=== PATIENT | male | born 1975 | race Caucasian/White ===

== ENCOUNTER 2019-08-30 01:01 | Day surgery (SDC) | payer BC, SELFPAY ==
[2019-08-16 12:57] VITALS: BMI 29.6
--- NOTE | 2019-08-27 13:03 | PM.SD ---
Same Day Admit/Disch: HPI History of Present Illness Chief complaint: Left Inguinal Hernia Narrative: Maikol Randle is a 44 year old male Who noticed a bulge in the left groin about 6 months ago. The bulge became bigger and much more noticeable after he moved a deer that was about 130 lb. The patient was seen in the office and found to have a reducible left inguinal hernia. It has gotten larger and is occasionally uncomfortable. He is taken to surgery now for repair under anesthesia. 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 Gender identity (if verbalized by the patient): Male Same Day Admit/Disch: Med Pre-admit Medications Home Medications Medication Instructions Recorded Confirmed Type fexofenadine [Lori Allergy] 180 mg PO DAILY PRN 08/16/19 08/16/19 History fluticasone propionate [Flonase 1 spray INTRANASAL DAILY PRN 08/16/19 08/16/19 History Allergy Relief] naproxen sodium [Aleve] 220 mg PO BID PRN 08/16/19 08/16/19 History hydrocodone-acetaminophen 1 - 2 tablet PO Q6H PRN #10 tablet 08/30/19 Rx ketorolac 10 mg PO Q6H 4 Days #16 tablet 08/30/19 Rx Exam Const: General: comfortable, no acute distress, alert and awake HENMT: Head: normocephalic and atraumatic Mouth: Yes Normal oral and palatal mucosa present Eyes: Conjunctivae: conjunctivae normal Pupils: Equal, round and reactive pupils present EOM: EOMs intact bilaterally Neck: Neck: normal visual inspection, no lymphadenopathy and nontender Resp: Effort & Inspection: normal respiratory effort Auscultation: clear to auscultation bilaterally Cardio: Rate: regular rate Rhythm: regular rhythm Heart sounds: no gallops, no murmurs and no rubs GI: Inspection: non-distended GI Palp: Yes Soft to palpation, No Tenderness to palpation present (GI), No Hepatomegaly present and No Splenomegaly present : Male General Exam: Yes hernia ( Left inguinal hernia, reducible, bulges with cough) Penis: Yes normal penis Scrotum: scrotum normal Testes: Testes normal Skin: Lesions: no lesions Rashes: no rashes Neuro: General: no focal motor deficits and CN's II-XI intact bilaterally Cranial nerves: Yes Equal, round and reactive pupils present, Yes Bilaterally intact EOM present, Yes facial symmetry and Yes Midline tongue present Speech: normal speech Motor exam (neuro): 5/5 motor strength present throughout and Motor abnormalities not present Extrem: General: no clubbing, cyanosis or edema and edema Psych: Affect: normal affect Thought process: Normal thought process present Insight: Good insight present (Psych) DS: Summary Time Spent with Patient Time attestation: Total time spent providing and/or coordinating discharge services: DS: Diagnosis Discharge Diagnosis (1) Left inguinal hernia: Onset Date: ~03/2019 Code(s): K40.90 - Unilateral inguinal hernia, without obstruction or gangrene, not specified as recurrent Status: Chronic Assessment and Plan: after discussion, I have recommended we go ahead with left inguinal hernia repair. The procedure the risks the benefits have been discussed with the patient. The usual recovery and time off work have been discussed. The use of mesh has been discussed. All questions were answered. The patient understands and agrees to go ahead. Discharge Plan Discharge Patient Disposition: Home, Self-Care Discharge Instructi
--- NOTE | 2019-08-30 10:16 | WPDHPUPDATE1 ---
History and Physical Update Update Date/Time: 08/30/19 10:16 History and Physical has been reviewed, including an updated exam of the patient. There are NO changes in the patient's condition. Risks, benefits, and alternatives have been discussed and questions answered. Patient agrees to proceed with procedure.
[2019-08-30 10:40] VITALS: BP 138/81; PULSE 85; RESP 18; TEMP 36.6; O2SAT 99
[2019-08-30] MEDS: LACTATED RINGERS 1,000 ML 30 ML IV CONT ×2 (10:40→13:06)
--- NOTE | 2019-08-30 11:27 | WPDANESEPPF ---
Anes - Initial Pre Proc Eval Procedure: Operation Date: 08/30/19 12:00 Proposed Procedures p Left Inguinal Hernia Repair - Michael Nielson MD Date/Time: 08/30/19 11:27 Surgeon: Michael Nielson MD Pre Op Diagnosis: Left Inguinal Hernia Patient Data Age: 44 Gender: M Height: 5 ft 8 in Weight: 57.5 kg Last Vital Signs Temp 36.6 C 08/30/19 10:40 Pulse 85 08/30/19 10:40 Resp 18 08/30/19 10:40 BP 138/81 08/30/19 10:40 Pulse Ox 99 08/30/19 10:40 Allergies Allergy/AdvReac Type Severity Reaction Status Date / Time No Known Allergies Allergy Verified 08/30/19 10:45 Home Medications Medication Instructions Recorded Confirmed Type fexofenadine [Lori Allergy] 180 mg PO DAILY PRN 08/16/19 08/16/19 History fluticasone propionate [Flonase 1 spray INTRANASAL DAILY PRN 08/16/19 08/16/19 History Allergy Relief] naproxen sodium [Aleve] 220 mg PO BID PRN 08/16/19 08/16/19 History Patient hx anesthesia problems: none Family hx anesthesia problems: none PMFSH Past Medical History Medical History (Updated 08/30/19 @ 11:28 by Heath Murguia MD) Overweight Surgical History Surgical History History of wisdom tooth extraction Family History Family History Mother Diabetes mellitus Unknown Cancer Hypertension Social History Social History Smoking status: Never smoker Alcohol intake: current Substance use: never 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 Questions were solicited and answers provided to the satisfaction of the patient/family/POA.
--- NOTE | 2019-08-30 11:28 | PM.PROC ---
Procedure Note - Detailed Date of procedure: 08/30/19 Pre-op diagnosis: Left Inguinal Hernia [ ] inguinal hernia Post-op diagnosis: other (Indirect hernia) Procedure performed: Repair of [ ] inguinal hernia with [6] cm Parietex hernia mesh system Description of procedure: The patient was taken to surgery and IV sedation was administered. The [ ] groin and genitalia were prepped and draped. Proposed incision was marked on the skin. Local was infiltrated into the skin and the deeper subcutaneous tissues. Incision was made and deepened through the subcutaneous. Crossing veins were cauterized and divided. Dissection was carried through Priti's fascia down to the external oblique aponeurosis. The aponeurosis was exposed as was the external ring. Additional local anesthesia was infiltrated deep to the aponeurosis in the area of the spermatic cord and inguinal canal contents. The aponeurosis was opened laterally and extended medially through the external ring. The leaves of the aponeurosis were dissected free from the spermatic cord. The ileoinguinal nerve was carefully preserved throughout the dissection and was left attached to the spermatic cord. The cord was then mobilized medially on a Mary drain. The cord was dissected back to the internal ring. Dissection was then carried out in the anteromedial spermatic cord. The hernia sac was found and dissected free. The sac was opened so that I could place a finger within the hernia sac and facilitate this dissection. This opening was then closed with a running 3 0 Vicryl suture. The sac was then dissected back to a high dissection. It was dunked into the retroperitoneum. A [6 ] centimeter Parietex [place] was chosen. It was folded to form a plug. It was placed in the defect. The edges were sutured to the transversalis fascia with interrupted 3 0 Vicryl suture. The hernia defect was then partially closed with some additional 3 0 Vicryl suture. Patch was then cut to the appropriate size and placed over the inguinal canal floor. The lateral leaves were passed beyond the cord. The cord and ileoinguinal nerve were then laid over the patch. The external oblique aponeurosis was closed with interrupted 3 0 Vicryl suture. Priti's fascia was closed with interrupted 3 0 Vicryl suture. The subcutaneous was closed with interrupted 4 0 Vicryl suture. Four 0 Vicryl subcuticular skin sutures were placed. The skin was closed finally with a running 4 0 Monocryl skin suture. The wound was dressed with Exofin surgical adhesive. The patient was awakened and taken to recovery in good condition. Sponge and needle counts were correct x2. Anesthesia: MAC and local (0.5% Marcaine with Exparel) Surgeon: Michael Nielson MD Estimated blood loss (mL): 5 Drains: No Packing: No Pathology: none sent Complications: None Condition: stable Disposition: PACU Findings: Indirect inguinal hernia. No sliding hernia was noted.
[2019-08-30] MEDS: ceFAZolin 2 GM/D5W 50 ML 2 GM/50 ML BAG IVPB (11:41)
[2019-08-30] MEDS: CELLULOSE OXIDIZED 2 x 14 INCH 1 PKT XX (12:35)
[2019-08-30 13:05] VITALS: BP 123/81; PULSE 74; RESP 16; O2SAT 98
--- NOTE | 2019-08-30 13:20 | PM.PROC ---
Procedure Note - Detailed Date of procedure: 08/30/19 Pre-op diagnosis: Left Inguinal Hernia Left inguinal hernia Post-op diagnosis: other (Direct inguinal hernia) Procedure performed: Left inguinal hernia repair with 8 centimeter Parietex hernia mesh system Description of procedure: The patient was taken to surgery and IV sedation was administered. The left groin and genitalia were prepped and draped. The proposed incision was marked on the skin and then local anesthesia was infiltrated into the skin and the deeper subcutaneous tissues. Incision was made and dissection was carried down through Priti's fascia to the external oblique aponeurosis. Crossing veins were cauterized and divided. The external oblique aponeurosis was then exposed as was the external ring. Additional local anesthetic was infiltrated deep to the aponeurosis in the area of the spermatic cord and inguinal canal contents. We then opened the external oblique aponeurosis laterally and extended this incision medially through the external ring. The leaves of the aponeurosis were freed from the underlying inguinal canal contents. Care was taken not to injure the ileoinguinal nerve which was dissected out and left attached to the spermatic cord. The spermatic cord was then mobilized medially on a Downey drain. It was mobilized back to the internal ring. The direct hernia was dissected free from the spermatic cord. It was dissected back to its neck. The sac was then incised circumferentially just off the neck. It was divided through the transversalis fascia circumferentially. The hernia sac was then dunked into the retroperitoneum. An 8 centimeter Parietex [place] was chosen. It was folded to form a plug. The plug was placed in the defect. The edges were sutured to the transversalis fascia with interrupted 3 0 Vicryl suture. The hernia defect was also partially closed with interrupted 3 0 Vicryl suture. The patch was then cut to the appropriate size. It was placed over the inguinal canal floor with the lateral leaves passing beyond the cord. The cord and ileoinguinal nerve were then laid over the patch. The external oblique aponeurosis was closed with interrupted 3 0 Vicryl suture. Priti's fascia was closed with interrupted 3 0 Vicryl suture. Four 0 Vicryl subcutaneous and subcuticular skin stitches were placed. The skin was finally closed with a running 4 0 Monocryl skin suture. The wound was dressed with Exofin surgical adhesive. Patient was awakened and taken to recovery in good condition. Sponge and needle counts were correct x2. Implants: 8 cm Parietex hernia mesh system Anesthesia: MAC and local (0.5% Marcaine mixed with Exparel) Surgeon: Michael Nielson MD Shoe Caser: Fernanda DAHL Estimated blood loss (mL): 15 Drains: No Packing: No Pathology: none sent Complications: None Condition: stable Disposition: same day Findings: Large direct inguinal hernia
[2019-08-30 13:35] VITALS: BP 153/99; PULSE 90
[2019-08-30 14:05] VITALS: BP 137/86; PULSE 72
== END 2019-08-30 14:35 | disposition home or self-care (01) ==
PROVIDERS: PCP Physician Assistant Medical; Visit Provider Surgery
PROC: (CPT 49505; principal; 2019-08-30 12:00)
DX: K40.90 Unilateral inguinal hernia, without obstruction or gangrene, not specified as recurrent (principal)
CPT/HCPCS: 49505; A9270; C1781; C9290; J0690; J2250; J2704; J3010; J7120

== ENCOUNTER → 2021-03-31 08:50 | Outpatient (CLI) | payer BC, SELFPAY ==
--- NOTE | ~2021-03-31 | MR_ITS ---
EXAMINATION: MR cervical spine wo con EXAM DATE: 03/31/2021 10:05 INDICATION: Cervicalgia with radiculopathy . Neck pain, right shoulder arm pain. TECHNIQUE: Multi-sequential, multiplanar MR images of the cervical spine were obtained without contra st. Axial T2, axial T2 MERGE sequence. Sagittal T1, T2, T2 fat saturation images also obtained. Th ere is no prior study for comparison. FINDINGS: There is mild to moderate disc disease C5-6 and 6-7, mild at C3-4 and C4-5. There are no s uspicious marrow signal abnormalities. The spinal cord signal intensity and intrinsic morphology is n ormal. There are no suspicious marrow signal abnormalities. The vertebral bodies are aligned in the A P dimension. Paraspinal soft tissue is unremarkable. Level by level evaluation: C2-C3: Disc does not extend beyond the endplate margin. Uncovertebral joint arthropathy: None. Facet joint arthropathy: None. Neural foraminal stenosis: No stenosis. Central canal stenosis: No stenosis. C3-C4: Disc does not extend beyond the endplate margin. Uncovertebral joint arthropathy: Mild bilateral. Facet joint arthropathy: Mild bilateral. Neural foraminal stenosis: No stenosis. Central canal stenosis: No stenosis. C4-C5: There is a minimal diffuse disc bulge. Uncovertebral joint arthropathy: Mild bilateral. Facet joint arthropathy: Mild bilateral. Neural foraminal stenosis: No stenosis. Central canal stenosis: No stenosis. C5-C6: There is a minimal diffuse disc bulge. Uncovertebral joint arthropathy: Mild to moderate bilateral. Facet joint arthropathy: Mild bilateral. Neural foraminal stenosis: Mild right. Central canal stenosis: No stenosis. C6-C7: There is a minimal diffuse disc bulge. Uncovertebral joint arthropathy: Moderate right, mild to moderate left. Facet joint arthropathy: Mild bilateral. Neural foraminal stenosis: Moderate right, mild left. Central canal stenosis: No stenosis. C7-T1: Disc does not extend beyond the endplate margin. Uncovertebral joint arthropathy: Mild left. Facet joint arthropathy: Mild bilateral. Neural foraminal stenosis: No stenosis. Central canal stenosis: No stenosis. IMPRESSION: 1. C6-7 moderate right neural foraminal stenosis, most narrowed neural foramina on exam. Reviewed, dictated and finalized at location B. IMPRESSION: 1. C6-7 moderate right neural foraminal stenosis, most narrowed neural foramin a on exam.
== END ==
PROVIDERS: PCP Physician Assistant Medical; Visit Provider Physician Assistant Medical
DX: M54.12 Radiculopathy, cervical region (principal); M48.02 Spinal stenosis, cervical region
CPT/HCPCS: 72141

== ENCOUNTER 2023-12-03 11:17 | Emergency (ER) | payer BC, SELFPAY ==
--- NOTE | 2023-12-03 11:19 | ED.BACK ---
HPI - Back Pain/Injury General Chief Complaint: Back Pain/Injury Stated Complaint: Lower Back Pain Time Seen by Provider: 12/03/23 11:29 Source: patient, RN notes reviewed and old records reviewed Mode of arrival: ambulatory Limitations: no limitations History of Present Illness HPI Narrative: 48-year-old male presents to the [facility] with complaints of low back pain that started last night. States that he was doing yd work yesterday. States the pain got more stiff and muscle spasming this morning. Denies any midline tenderness. Denies trauma. No loss retention bladder. Numbness or tingling in extremities. Walks with a normal gait Related Data Home Medications Medication Instructions Recorded Confirmed fexofenadine 60 mg tablet 60 mg PO Q12H 12/03/23 12/03/23 Allergies Allergy/AdvReac Type Severity Reaction Status Date / Time No Known Allergies Allergy Verified 12/03/23 11:21 Review of Systems Review of Systems: All systems reviewed & are unremarkable except as noted in HPI and below Constitutional: Constitutional: Reports no additional constitutional complaints Eyes: Eyes: Reports no additional eye complaints ENT: Reports system reviewed and no additional complaints, except as documented Cardiovascular: Cardiovascular: Reports no additional cardiovascular complaints, Denies chest pain and Denies dyspnea Respiratory: Respiratory: Reports no additional respiratory complaints, Denies chest congestion, Denies cough and Denies dyspnea Gastrointestinal: Gastrointestinal: Reports no additional gastrointestinal complaints, Denies abdominal pain, Denies nausea and Denies vomiting Musculoskeletal: Musculoskeletal: Reports as per HPI and Reports back pain Integumentary/Breasts: Skin/Breast: Reports system reviewed and no additional complaints, except as docu Neurologic: Reports system reviewed and no additional complaints, except as documented Psychiatric: Psychiatric: Reports no additional psychiatric complaints Allergic/Immunologic: Allergic/Immunologic: Reports no additional allergic/immunologic complaints [facility] Past Medical History Medical History Overweight Surgical History Surgical History History of wisdom tooth extraction Left inguinal hernia (~03/2019) Family History Family History Mother Diabetes mellitus Unknown Cancer Hypertension Social History Social History Smoking status: Never smoker Alcohol intake: current Substance use: never Living arrangements: with family Occupation/Education: occupation 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 There is no relevant family history pertinent to the patient complaint. Exam Const: General: cooperative, healthy appearing, comfortable, no acute distress, well developed, alert and well nourished Nutritional Appearance: well nourished Orientation/consciousness: patient oriented x3 Limitations: no limitations HENMT: Head: normal to inspection Ears: hearing grossly normal bilaterally and external ears normal Face/Nose/Sinus: Normal external nose present, Normal nares present, Normal nasal mucous membranes and turbinates present, normal facial exam and face symmetric Face and sinus: normal facial exam and face symmetric Eyes: General: appearance normal, both eyes and all related structures Alignment and Position: alignment normal Periorbital: periorbital findings normal Pupils: Equal, round and reactive pupils present EOM: EOMs intact bilaterally Neck: Neck: normal visual inspection, full ROM, no lymphadenopathy
[2023-12-03 11:29] VITALS: BP 148/99; PULSE 90; RESP 16; TEMP 36.4; O2SAT 100
== END 2023-12-03 11:40 | disposition home or self-care (01) ==
PROVIDERS: Emergency Provider Nurse Practitioner
DX: M54.50 Low back pain, unspecified (principal)
CPT/HCPCS: 99213; G0463

== ENCOUNTER 2025-03-27 00:48 | Day surgery (SDC) | payer BC, SELFPAY ==
[2025-03-15 09:03] VITALS: BMI 29.1
[2025-03-27 06:12] VITALS: BP 136/83; PULSE 80; RESP 16; TEMP 36.1; O2SAT 99
[2025-03-27] MEDS: LACTATED RINGERS 1,000 ML 150 ML IV CONT (06:22)
--- NOTE | 2025-03-27 07:04 | WPDANESEPPF ---
Anes - Initial Pre Proc Eval Procedure: Operation Date: 03/27/25 07:30 Proposed Procedures p Screening Colonoscopy - Vahid Sylvester DO Date/Time: 03/27/25 07:04 Surgeon: Vahid Sylvester DO Pre Op Diagnosis: Screening for malignant neoplasm of colon Patient Data Age: 49 Gender: M Height: 1.73 m Weight: 85.5 kg Last Vital Signs Temp 36.1 C L 03/27/25 06:12 Pulse 80 03/27/25 06:12 Resp 16 03/27/25 06:12 BP 136/83 03/27/25 06:12 Pulse Ox 99 03/27/25 06:12 O2 Del Method Room Air 03/27/25 06:12 Allergies Allergy/AdvReac Type Severity Reaction Status Date / Time No Known Allergies Allergy Verified 03/27/25 06:11 Home Medications ?Medication ?Instructions ?Recorded ?Confirmed ?Type fexofenadine 60 mg tablet (Lori 60 mg PO .PRN 02/03/24 03/27/25 History Allergy) multivit,calc,mins-folic 240 1 tablet PO DAILY 02/03/24 03/27/25 History mcg-vit K1 30 mcg-lycopene 300 mcg tablet (One-A-Day Men's Complete) rosuvastatin 5 mg tablet 5 mg PO DAILY #90 tabs 11/20/24 03/27/25 Rx semaglutide (weight loss) 2.4 2.4 mg (0.75 mL) subcut WEEKLY #3 01/17/25 03/27/25 Rx mg/0.75 mL subcutaneous pen mL injector (Wegovy) lisinopril 10 mg tablet 10 mg PO DAILY #90 tabs 02/19/25 03/27/25 Rx Patient hx anesthesia problems: none Family hx anesthesia problems: none Results Review: All pre-operative results and documents have been reviewed as part of the pre-operative evaluation. [facility] Past Medical History Medical History (Updated 03/27/25 @ 07:05 by Neftali Mena DO) Hyperlipidemia Essential hypertension Migraines Allergies Overweight Surgical History Surgical History Left inguinal hernia (~03/2019) History of wisdom tooth extraction Family History Family History Mother Diabetes mellitus Asthma Father Hypertension Social History Social History (Updated 01/17/25 @ 08:00 by Donna Mart MA) Social History: 01/14/25 somewhat confident with medical forms Smoking status: Never smoker Alcohol intake: current Alcohol use details: Socially Substance use: never Do You Feel Safe in your Home?: Yes Lack of Transportation: No Lack of Food: Never True Current Housing: I Have Housing Concerned About Future Housing: No Difficulty Paying Gas/Electric Bills: No Difficulty Paying for Meds: No Currently Unemployed: No Education: Trade/Vocational Certificate Difficulty w/ Childcare or Family Care: No Living arrangements: with family Occupation/Education: occupation 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 Gender identity (if verbalized by the patient): Male Sexual Orientation (if Verbalized by the Patient): Straight or Heterosexual Spiritual care concerns: No Agree to blood products: Yes Anes - Eval Final PreProcedure Day of Procedure 03/27/25 07:04 Patient weight: overweight Heart: regular rate and rhythm Lungs: clear to auscultation Airway: Mallampati scale class II Neurological: alert and oriented Last oral intake: >/= 8 hours ASA classification: II Emergent: no Anesthetic plan: proceed Anesthesia type and monitoring: general GIVS and standard monitoring Results Review: All pre-operative results and documents have been reviewed as part of the pre-operative evaluation. Informed Consent: The patient's anesthetic plan and its attendant risks and benefits were discussed with the patient/family/POA. Questions were solicited and answers provided to the satisfaction of the patient/family/POA.
--- NOTE | 2025-03-27 07:31 | PM.IMHP ---
H&P: HPI History of Present Illness Date/Time: 03/27/25 07:31 Chief Complaint: Screening for colorectal cancer Narrative: this is a 49-year-old man who presents for colonoscopy. He has never had a colonoscopy before. He denies any hematochezia or melena. He denies family history of colon cancer. Review of Systems Review of Systems: All systems reviewed & are unremarkable except as noted in HPI and below Constitutional: Constitutional: Denies chills, Denies fever(s), Denies headache(s) and Denies weight loss Eyes: Eyes: Denies change in vision ENT: Denies dizziness, Denies headache(s), Denies neck mass and Denies throat swelling Cardiovascular: Cardiovascular: Denies chest pain, Denies lightheadedness and Denies dyspnea Respiratory: Respiratory: Denies cough, Denies dyspnea and Denies wheezing Gastrointestinal: Gastrointestinal: Denies abdominal pain, Denies change in bowel habits, Denies nausea and Denies vomiting Genitourinary: Genitourinary: Denies hematuria and Denies dysuria Musculoskeletal: Musculoskeletal: Reports as per HPI Integumentary/Breasts: Skin/Breast: Reports as per HPI Neurologic: Denies dizziness and Denies headache(s) Allergic/Immunologic: Allergic/Immunologic: Denies throat swelling and Denies wheezing [facility] Past Medical History Medical History (Updated 03/27/25 @ 07:32 by Vahid Sylvester DO) Hyperlipidemia Essential hypertension Migraines Allergies Overweight Surgical History Surgical History Left inguinal hernia (~03/2019) History of wisdom tooth extraction Family History Family History Mother Diabetes mellitus Asthma Father Hypertension Social History Social History (Updated 01/17/25 @ 08:00 by Donna Mart MA) Social History: 01/14/25 somewhat confident with medical forms Smoking status: Never smoker Alcohol intake: current Alcohol use details: Socially Substance use: never Do You Feel Safe in your Home?: Yes Lack of Transportation: No Lack of Food: Never True Current Housing: I Have Housing Concerned About Future Housing: No Difficulty Paying Gas/Electric Bills: No Difficulty Paying for Meds: No Currently Unemployed: No Education: Trade/Vocational Certificate Difficulty w/ Childcare or Family Care: No Living arrangements: with family Occupation/Education: occupation 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 Gender identity (if verbalized by the patient): Male Sexual Orientation (if Verbalized by the Patient): Straight or Heterosexual Spiritual care concerns: No Agree to blood products: Yes Meds Home Medications and Allergies Home Medications ?Medication ?Instructions ?Recorded ?Confirmed ?Type fexofenadine 60 mg tablet (Lori 60 mg PO .PRN 02/03/24 03/27/25 History Allergy) multivit,calc,mins-folic 240 1 tablet PO DAILY 02/03/24 03/27/25 History mcg-vit K1 30 mcg-lycopene 300 mcg tablet (One-A-Day [facility]) rosuvastatin 5 mg tablet 5 mg PO DAILY #90 tabs 11/20/24 03/27/25 Rx semaglutide (weight loss) 2.4 2.4 mg (0.75 mL) subcut WEEKLY #3 01/17/25 03/27/25 Rx mg/0.75 mL subcutaneous pen mL injector ([employer]) lisinopril 10 mg tablet 10 mg PO DAILY #90 tabs 02/19/25 03/27/25 Rx Allergies Allergy/AdvReac Type Severity Reaction Status Date / Time No Known Allergies Allergy Verified 03/27/25 06:11 Vital Signs Vital Signs - 24 hr 03/27/25 06:12 Temperature 97 F L Pulse Rate 80 Respiratory Rate 16 Blood Pressure 136/83 Pulse Oximetry 99 Oxygen Delivery Room Air Exam Const: General: no acute distress and alert Orientation/consciousness: patient oriented x3 HENMT: Head: normocephalic and atraumatic Ears: hearing grossly normal bilaterally Face/Nose/Sinus: Normal nares present Mouth: Yes Normal oral and palatal mucosa present Eyes: Periorbital: periorbital findings normal Sclera: sclerae normal EOM: EOMs intact bilaterally Neck: Neck: normal visual inspection, no lymphadenopathy and trachea midline Chest: Chest palpation & inspection: normal inspection of the chest Resp: Effort & Inspection: normal respiratory effort Auscultation: clear to auscultation bilaterally Cardio: Jugular venous distension: no JVD Rate: regular rate Rhythm: regular rhythm Heart sounds: S1 normal heart sound present and S2 normal heart sound present Peripheral pulses: Peripheral pulses 2+ throughout GI: Inspection: normal to inspection GI Palp: Yes Soft to palpation, No Tenderness to palpation present (GI), No Guarding due to palpation present (GI) and No Rebound tenderness present Percussion: Yes normal to percussion Auscultation: normal bowel sounds : General: Yes no CVA tenderness Back/Spine/Pelvis: Back: no CVA tenderness Neuro: General: patient oriented x3, no focal motor deficits and CN's II-XI intact bilaterally Cognition (Neuro): normal cognition Speech: normal speech Motor exam (neuro): 5/5 motor strength present throughout Extrem: General: capillary refill normal and no clubbing, cyanosis or edema Assessment and Plan Assessment and plan (1) Screening for colorectal cancer: Code(s): Z12.11 - Encounter for screening for malignant neoplasm of colon; Z12.12 - Encounter for screening for malignant neoplasm of rectum Status: Acute Assessment and Plan: I have recommended colonoscopy. I have discussed the procedure, risks, benefits, and alternatives. Questions were answered. Patient is agreeable to proceed.
[2025-03-27 07:48] VITALS: BP 100/66; PULSE 85; RESP 21; O2SAT 100
[2025-03-27 07:58] VITALS: BP 114/82; PULSE 87; RESP 24; O2SAT 98
[2025-03-27 08:08] VITALS: BP 107/76; PULSE 84; RESP 18; O2SAT 99
== END 2025-03-27 08:17 | disposition home or self-care (01) ==
PROVIDERS: PCP Nurse Practitioner Family; Visit Provider Surgery
PROC: 0DJD8ZZ Inspection of Lower Intestinal Tract, Via Natural or Artificial Opening Endoscopic (ICD-10-PCS; CPT 45378; principal; 2025-03-27 07:30)
DX: Z12.11 Encounter for screening for malignant neoplasm of colon (principal); E78.5 Hyperlipidemia, unspecified; I10 Essential (primary) hypertension; Z79.85 Long-term (current) use of injectable non-insulin antidiabetic drugs; Z98.890 Other specified postprocedural states
CPT/HCPCS: 45378; J2003; J2704; J7120